=== PATIENT | male | born 1945 | race Two or more races ===

== ENCOUNTER 2019-08-12 22:34 | Inpatient (IN) | payer OTHER, MEDICARE ==
[~2019-08-12] VITALS: Ht 172.7 cm; Wt 68.7 kg
--- NOTE | 2019-08-12 22:40 | NUR ---
PT AAOX4. [id number] FROM HOME SYNCOPAL EPISODE, +LOC FOR 1-2 MINUTES PER RA. PT PLACED IN GOWN, IN BED 4, ON MONITOR AND PULSE OX. UPON ASSESSMENT FACIAL TRAUMA NOTED AND NOSE BLEED. PER PT, THE LAST THING HE REMEMBERS HE WAS GOING UP THE STAIRS. INCONTINENCE NOTED. MD AT BEDSIDE. AWAITING ORDERS.
--- NOTE | 2019-08-12 22:41 | NUR ---
BG 130
--- NOTE | 2019-08-12 22:42 | NUR ---
PT CAN NOT RECALL WHAT OCCURED.
--- NOTE | 2019-08-12 22:48 | NUR ---
ALEXANDRO () CONTACT INFORMATION: [phone]
--- NOTE | 2019-08-12 22:50 | NUR ---
EMT AT BEDSIDE FOR EKG
--- NOTE | 2019-08-12 22:58 | NUR ---
BROUGHT TO CT
[2019-08-12] MEDS ORDERED: METF-440 PO (23:14)
[2019-08-12] MEDS ORDERED: NATE120T6 PO (23:14)
--- NOTE | 2019-08-12 23:16 | NUR ---
PT RETURNED FROM CT
--- NOTE | 2019-08-12 23:17 | NUR ---
BACK FROM CT. AWAITING URINE SAMPLE.
--- NOTE | 2019-08-12 23:21 | NUR ---
PT PROVIDED URINE SAMPLE. SENT TO LAB
--- NOTE | 2019-08-12 23:24 | NUR ---
WORKSITE WELLNESS PRACTITIONER AT BEDSIDE FOR LABS
[2019-08-12 23:31] LABS: BASOPHILS % (AUTO) 0.4 % (0.0-2.0); EOSINOPHILS % (AUTO) 1.1 % (0.0-6.0); HEMATOCRIT 44 % (39-51); HEMOGLOBIN 14.6 g/dL (13.5-17.5); LYMPHOCYTES % (AUTO) 20.1 % (20.0-44.0); MEAN CORPUSCULAR HGB CONC 33 g/dl (31.0-36.0); MEAN CORPUSCULAR VOLUME 94 fL (80-96); MONOCYTES # (AUTO) 0.5 /CMM (0.1-1.30); MONOCYTES % (AUTO) 5.3 % (2.0-12.0); NEUTROPHILS # (AUTO) 7.1 /CMM (1.8-8.9); NEUTROPHILS % (AUTO) 73.1 % (43.0-81.0); PLATELET COUNT (AUTO) 172 /CMM (150-450); RED BLOOD CELL COUNT(AUTO) 4.71 MIL/uL (4.5-6.0); WHITE BLOOD COUNT (AUTO) 9.7 K/uL (4.3-11.0)
--- NOTE | 2019-08-12 23:32 | NUR ---
EMT AT BEDSIDE FOR WOUND CARE
[2019-08-12 23:44] LABS: CALCIUM, SERUM 8.9 mg/dL (8.5-10.1); POTASSIUM 3.7 mmol/L (3.5-5.1)
--- NOTE | 2019-08-12 23:44 | NUR ---
PT RESTING COMFORTABLY. ON MONITOR AND PULSE OX. VSS.
[2019-08-12 23:47] LABS: ALCOHOL, BLOOD 145 mg/dL (0-0)
[2019-08-12 23:50] LABS: ACETAMINOPHEN < 2 ug/ml (10-30); ALBUMIN 3.9 g/dL (3.4-5.0); BILIRUBIN,DIRECT 0.1 mg/dL (0.0-0.2); BILIRUBIN,TOTAL 0.3 mg/dL (0.2-1.0); SALICYLATE 1.4 mg/dL (2.8-20.0); TOTAL PROTEIN, SERUM 6.8 g/dL (6.4-8.2)
[2019-08-13] VITALS (9 sets, daily range): BP systolic 126–151; BP diastolic 70–90
[2019-08-13] MEDS ORDERED: AMOX/CLAVULANATE 875 MG TABLET PO ONE
[2019-08-13] MEDS ORDERED: AMOX/CLAVULANATE 875 MG TABLET ONE (00:04)
[2019-08-13] MEDS ORDERED: IV NS 0.9% 1,000 ML IV PRN (00:05)
--- NOTE | 2019-08-13 00:08 | NUR ---
PT REFUSING TO TAKE ANTIBIOTIC. MD AWARE. MD SPOKE TO PATIENT AND EXPLAINED THE RISK AND BENEFITS OF MED. PT REFUSED TO TAKE ANTIBIOTIC.
[2019-08-13] MEDS ORDERED: MAGNESIUM HYDROXIDE 30 ML UDC PO PRN (00:30)
[2019-08-13] MEDS ORDERED: Z GUARD REMEDY 2 OZ OINT TP PRN (00:30)
[2019-08-13] MEDS ORDERED: DEXTROSE 50%-WATER 50 ML DISP.SYRIN IV PRN (00:30)
[2019-08-13] MEDS ORDERED: ONDANSETRON HCL/PF 4 MG/2 ML VIAL IVP PRN (00:30)
[2019-08-13] MEDS ORDERED: ACETAMINOPHEN 325 MG TABLET PO PRN (00:30)
[2019-08-13] MEDS ORDERED: MAG HYDROX/AL HYDROX/SIMETH 30 ML UDC PO PRN (00:30)
--- NOTE | 2019-08-13 00:41 | NUR ---
REPORT GIVEN TO ORTEGA MURO FOR CAMACHO
--- NOTE | 2019-08-13 00:50 | NUR ---
OTOLARYNGOLOGY SURGEON ADMITTING NOTES RECEIVED PT FROM ER VIA JULIUS IN STABLE CONDITION. PT A/O X3 AND ABLE TO MAKE NEEDS KNOWN. NO COMPLAINTS OF PAIN AT THIS TIME. PT NOTED WITH LFA #18G PATENT AND INTACT. ORIENTED PT TO ROOM AND STAFF. SAFETY MEASURES IN PLACE WITH BED IN LOWEST LOCKED POSITION WITH SIDE RAILS UP X2. CALL LIGHT WITHIN REACH. WILL CONTINUE TO MONITOR.
--- NOTE | 2019-08-13 00:54 | NUR ---
PT TRANSFERED PER ACLS PROTOCOL
--- NOTE | 2019-08-13 01:00 | NUR ---
PARTY SUPPLY SPECIALIST NOTES PT REFUSED FLUIDS AT THIS TIME. PT ALSO REFUSED PHOTOS AT THIS TIME. PT ALSO REFUSED TO HAVE WALLET WHICH INCLUDED MONEY AND CREDIT CARDS TO BE PUT INTO SAFE AT THIS TIME. WILL CONTINUE TO MONITOR.
--- NOTE | 2019-08-13 01:58 | NUR ---
Patient had stabilizing neck brace. Nurse Arreola talked to Desi Martinez who suggested to do the carotid duplex test tomorrow
[2019-08-13] MEDS: PANTOPRAZOLE 40 MG TABLET.DR PO SCH (07:30)
--- NOTE | 2019-08-13 07:40 | NUR ---
CLINIC CLERK NOTES PT REFUSED SS INSULIN COVERAGE. PT STATED "I DO NOT TAKE INSULIN." WILL CONTINUE TO MONITOR.
[2019-08-13] MEDS: BLOOD SUGAR DIAGNOSTIC 1 EACH STRIP IN SCH ×4 (07:42→22:31)
[2019-08-13] MEDS: INSULIN REGULAR, HUMAN 100 UNIT/ML 3 ML VIAL SQ PRN ×2 (07:43→22:32)
--- NOTE | 2019-08-13 07:44 | NUR ---
CUSTOMS PORT DIRECTOR NOTES PT IN BED AWAKE AND ABLE TO MAKE NEEDS KNOWN. PT A/O X3. NO COMPLAINTS OF PAIN AT THIS TIME. PT NOTED WITH LFA #18G PATENT AND INTACT. SAFETY MEASURES IN PLACE WITH BED IN LOWEST LOCKED POSITION WITH SIDE RAILS UP X2. CALL LIGHT WITHIN REACH. WILL ENDORSE TO ONCOMING NURSE FOR CAMACHO.
--- NOTE | 2019-08-13 07:52 | NUR ---
HUMAN RESOURCE ADVISOR OPENING NOTES RECEIVED PATIENT IN BED, AWAKE, A/O X3. PATIENT IS ON ROOM AIR; BREATHING IS EVEN AND UNLABORED AT THIS TIME. NO COMPLAINS OF PAIN. NECK COLLAR IS IN PLACE AND IN THE RIGHT POSITION. LFA IV ACCESS G # [address] AND FLUSHING WELL. ALL SAFETY PRECAUTIONS IN PLACE; BED IN LOW POSITION AND LOCKED, RAILS UP X2, CALL LIGHT WITHIN REACH. WILL CONTINUE TO MONITOR PATIENT.
[2019-08-13] MEDS: METFORMIN 500 MG TABLET PO SCH ×2 (08:26→16:50)
[2019-08-13] MEDS: AMOX/CLAVULANATE 875 MG TABLET PO SCH ×2 (08:35→21:00)
[2019-08-13] MEDS: LOSARTAN POTASSIUM 50 MG TABLET PO SCH (08:35)
[2019-08-13] MEDS: ATORVASTATIN 10 MG TABLET PO SCH (08:36)
--- NOTE | 2019-08-13 08:44 | NUR ---
WOUND CARE CONSULT: PT PRESENTS WITH CERVICAL COLLAR, DISCOLORATION TO BILATERAL EYES, DRY ABRASIONS TO FOREHEAD AND NOSE, PRESENT ON ADMISSION. DEFER TO MD FOR POSSIBLE SURGICAL CONSULT (NASAL FRACTURE PER REPORT). CURRENT RODO SCORE IS 22. PT IS INDEPENDENT WITH BED MOBILITY AND IS CONTINENT AT THIS TIME. WILL SEE PRN. Addendum: 08/13/19 at 0846 by HOLLY HICKEY WNDNU Amended: Links added.
[2019-08-13] MEDS: NATEGLINIDE 60 MG TABLET PO SCH (08:53)
[2019-08-13 09:41] LABS: MAGNESIUM 1.9 mg/dL (1.8-2.4); PHOSPHORUS 3.6 mg/dL (2.5-4.9)
--- NOTE | 2019-08-13 09:54 | NUR ---
MRI PROCEDURE PATIENT LEAVING FOR MRI.
--- NOTE | 2019-08-13 10:30 | NUR ---
RADIOLOGICAL METALLURGIST NOTES PATIENT BACK FROM MRI. MEDICALLY STABLE. WILL CONTINUE TO MONITOR.
--- NOTE | 2019-08-13 11:50 | NUR ---
LPN OR MEDICAL ASSISTANT NOTES 1150 ACCU-CHECK; BS 123. PATIENT REFUSES INSULIN
[2019-08-13 12:14] LABS: THYROID STIMULATING HORMONE 1.279 uIU/mL (0.358-3.74)
--- NOTE | 2019-08-13 19:07 | NUR ---
SHIFT LAB TECHNICIAN CLOSING NOTES PATIENT REMAINS IN BED, AWAKE, A/O X3. PATIENT IS ON ROOM AIR; BREATHING IS EVEN AND UNLABORED AT THIS TIME. NO COMPLAINS OF PAIN. NECK COLLAR IS IN PLACE AND IN THE RIGHT POSITION. LFA IV ACCESS G # [address] AND FLUSHING WELL. ALL NEEDS ATTENDED TO THROUGHOUT THE DAY. ALL SAFETY PRECAUTIONS IN PLACE; BED IN LOW POSITION AND LOCKED, RAILS UP X2, CALL LIGHT WITHIN REACH. WILL ENDORSE TO PROFESSOR OF THEOLOGY NURSE.
--- NOTE | 2019-08-13 20:30 | NUR ---
rn notes/refused for c - collar: per md notes, recommended for pt to use c-collar, however pt refused, stated its putting too much pressure on his neck area, and its uncomfortable. education provided to pt.
--- NOTE | 2019-08-13 21:53 | NUR ---
PLANT AND MACHINERY VALUER NOTE: Patient refused to take Augmentin tab. Educated patient about the positive and negative of taking and not taking medication. Patient stated, "I don't have infection and I won't have a surgery tomorrow, I don't want to take it."
--- NOTE | 2019-08-13 22:32 | NUR ---
WIND PROJECTS SUPERVISOR NOTE: Patient glucose 154. Patient refused insulin.
[2019-08-14] VITALS (7 sets, daily range): BP systolic 122–156; BP diastolic 72–88
[2019-08-14] MEDS: METFORMIN 500 MG TABLET PO SCH (06:17)
[2019-08-14] MEDS: INSULIN REGULAR, HUMAN 100 UNIT/ML 3 ML VIAL SQ PRN (06:18)
[2019-08-14] MEDS: BLOOD SUGAR DIAGNOSTIC 1 EACH STRIP IN SCH (06:18)
--- NOTE | 2019-08-14 06:18 | NUR ---
pt requested for metformin and starlix to be taken at this time, refused for insulin, stated he never had insulin at home, only using metformin and starlix for dm, blood glucose 162.an/sqq [id number])15 sonar system journeyman made aware
[2019-08-14] MEDS: NATEGLINIDE 60 MG TABLET PO SCH (06:22)
--- NOTE | 2019-08-14 06:59 | NUR ---
end of shift report: pt remains a/o x4, on ra respirations even and unlabored. iv access remains patent and flushing well, on hl, no s/s of iv infiltration noted. pt continue refusing for c-collar despite providing education. aware of pt's refusal. remains on tele monitoring sinus rhythm 1st degree hb , borderline hr 74. accu check performed, pt refusing for insulin, education provided to pt. vs remains stable, needs attended. safety precautions for fall remains engaged, call light in reach, will endorse to day rn for continuity of care.
--- NOTE | 2019-08-14 07:00 | NUR ---
Patient in bed. not in acute distress. Denies any pain or discomfort. All needs attended. IV intact, flushing well. No s/s of hypo/hyperglycemia noted. Safety measures intact. Will cont to monitor
[2019-08-14 07:18] LABS: BASOPHILS % (AUTO) 0.2 % (0.0-2.0); EOSINOPHILS % (AUTO) 0.4 % (0.0-6.0); HEMATOCRIT 41 % (39-51); HEMOGLOBIN 13.8 g/dL (13.5-17.5); LYMPHOCYTES # (AUTO) 1.8 /CMM (0.8-4.8); LYMPHOCYTES % (AUTO) 22.9 % (20.0-44.0); MEAN CORPUSCULAR HGB CONC 33 g/dl (31.0-36.0); MEAN CORPUSCULAR VOLUME 93 fL (80-96); MONOCYTES # (AUTO) 0.8 /CMM (0.1-1.30); MONOCYTES % (AUTO) 10.5 % (2.0-12.0); PLATELET COUNT (AUTO) 160 /CMM (150-450); RED BLOOD CELL COUNT(AUTO) 4.44 MIL/uL (4.5-6.0); WHITE BLOOD COUNT (AUTO) 7.6 K/uL (4.3-11.0)
[2019-08-14] MEDS: PANTOPRAZOLE 40 MG TABLET.DR PO SCH (07:30)
[2019-08-14 07:35] LABS: CALCIUM, SERUM 8.4 mg/dL (8.5-10.1); CREATININE 0.9 mg/dL (0.6-1.3); POTASSIUM 3.7 mmol/L (3.5-5.1)
[2019-08-14 07:42] LABS: THYROID STIMULATING HORMONE 1.828 uIU/mL (0.358-3.74)
[2019-08-14] MEDS: LOSARTAN POTASSIUM 50 MG TABLET PO SCH (09:00)
[2019-08-14] MEDS: AMOX/CLAVULANATE 875 MG TABLET PO SCH (09:00)
[2019-08-14] MEDS: ATORVASTATIN 10 MG TABLET PO SCH (09:19)
--- NOTE | 2019-08-14 12:27 | NUR ---
patient discharged home in stable condition. IV and shrimp cleaner removed, all belongings sent with the patient. Discharge instructions provided.
== END 2019-08-14 12:30 | disposition home or self-care (01) | DRG 640 ==
LOC: ER 22:37 → TELE 08-13 00:28 → MED 08-14 09:41
PROVIDERS: ADMIT Registered Nurse; ATTEND Family Medicine
DX: E86.0 Dehydration (principal); I21.A1 Myocardial infarction type 2; S12.401A Unspecified nondisplaced fracture of fifth cervical vertebra, initial encounter for closed fracture; S02.2XXA Fracture of nasal bones, initial encounter for closed fracture; W10.9XXA Fall (on) (from) unspecified stairs and steps, initial encounter; Y92.039 Unspecified place in apartment as the place of occurrence of the external cause; I48.91 Unspecified atrial fibrillation; Z79.84 Long term (current) use of oral hypoglycemic drugs; I10 Essential (primary) hypertension; Z79.899 Other long term (current) drug therapy; E11.65 Type 2 diabetes mellitus with hyperglycemia; M48.02 Spinal stenosis, cervical region
CPT/HCPCS: 36415; 70450-TC; 70486-TC; 71045-TC; 72125-TC; 72141-TC; 80048-TC; 80061-TC; 80076-TC; 80305; 82962-TC; 83735-TC; 84100-TC; 84439-TC; 84443-TC; 84484-TC; 85025-TC; 85730-TC; 87081-TC; 93307-TC; 93880-TC; 97116-TC; 97530-TC; G0378; G0480; J1815; L0172